=== PATIENT | male | born 1990 | race Caucasian/White ===

== ENCOUNTER 2018-10-29 07:50 | Emergency (ER) | payer MEDICARE, MEDICAID, SELFPAY ==
[2018-10-29] VITALS (17 sets, daily range): BP systolic 123–144; BP diastolic 67–92; PULSE 57–71; RESP 12–17; TEMP 36.4–37.3; O2SAT 95–100
--- NOTE | 2018-10-29 08:10 | ED.GENADUL_ITS ---
Discharge Plan Disposition Patient Disposition: HOME Condition: Stable Discharge Details Chief Complaint: GenMedical Clinical Impression: Vertigo, Nausea, Abnormal TSH Primary Care Provider: Mandi Kim ED Provider: Nallely Kuhn Home Meds and New Rx's Prescriptions: New ondansetron HCl [Zofran] 4 mg tablet 4 mg PO TID PRN (Reason: nausea) Qty: 9 RF: 0 Continue methylphenidate HCl [Ritalin] 20 mg tablet 20 mg PO TID MDD 3 Qty: 90 RF: 0 methylphenidate HCl [Ritalin] 10 mg tablet 10 mg PO BID MDD 2 Qty: 60 RF: 0 levothyroxine 200 MCG tablet 200 mcg PO DAILY RF: 0 cholecalciferol (vitamin D3) 50,000 UNIT capsule 50,000 unit PO wkly RF: 0 buprenorphine-naloxone [Suboxone] 2-0.5 mg Film 10 mg SUBLINGUAL DAILY RF: 0 Discharge Instructions Instructions: Ondansetron (By mouth), Acute Nausea and Vomiting (ED), Dizziness (ED) Additional Instructions: Please return immediately to the emergency department if you develop any new or worsening symptoms or if you become otherwise concerned. It is extremely important that you make an appointment to be seen by your primary care doctor within the next 1-2 weeks in follow-up for this visit. Referrals: Mandi Kim, ENFORCEMENT OFFICER [Primary Care Provider] - Medical Decision Making Charanjit Mayorga is a 28-year-old man with a history of thyroid cancer status post resection now in remission, ADHD, on Suboxone presenting to the emergency department with 1 week of sense of motion with nausea in the setting of daily marijuana use. Benign exam, patient very well and nontoxic appearing, no neuro deficit, no cardiopulmonary abnormality. Concern for atypical cyclic vomiting syndrome versus peripheral vertigo versus central vertigo. Exam/history not consistent with ACS, arrhythmia, PE, acute aortic pathology, meningitis, infection, acute stroke. Plan for EKG, screening labs, IV fluid hydration. Patient with no improvement after IV hydration. Labs nondiagnostic. Plan for meclizine, MRA/MRI for rule out central vertigo. Patient with continued symptoms, remains in normal sinus rhythm on monitor. No improvement with meclizine, patient continues to feel overall well but with sense of motion persisting. Exam unchanged. MRI/MRA negative per radiology. Labs show low TSH. 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 Discussed marijuana cessation in case symptoms are caused by cyclic vomiting syndrome. Lengthy discussion with patient regarding return to emergency department precautions and importance of outpatient follow-up with endocrine regarding his TSH level, and also with his PCP as scheduled for 10/31/18. Plan for Rx Zofran. Patient is amenable to the plan. Walked out of ED without issue. Medical Records Medical records reviewed: Yes I reviewed the patient's medical records. Lab Data Lab results reviewed: Yes I reviewed the patient's lab results. Laboratory Tests Range/Units 10/29/18 10/29/18 09:30 09:30 WBC (4.4-10.8) k/cumm 7.00 RBC (4.50-6.00) m/cumm 5.10 Hgb (13.5-17.5) g/dL 15.5 Hct (40.0-50.0) % 44.3 MCV (80-95) fL 86.9 MCH (27.0-33.0) pg 30.4 MCHC (32.0-36.0) g/dL 35.0 RDW (11.8-14.1) % 12.5 Plt Count (130-400) x1000/uL 213 MPV (8.0-11.0) fL 9.2 Immature Gran % 0.1 Neutrophils % 75.5 Lymphocytes % 15.4 Monocytes % 6.3 Eosinophils % 2.4 Basophils % 0.3 Absolute Neutrophils (1.2-6.7) k/cumm 5.28 Absolute Lymphocytes (1.2-3.4) k/cumm 1.08 L Absolute Monocytes (0.11-0.7) k/cumm 0.44 Absolute Eosinophils (0.0-0.7) k/cumm 0.17 Absolute Basophils (0.0-0.2) k/cumm 0.02 Sodium (136-145) mmol/L 140 Potassium (3.5-5.1) mmol/L 4.3 Chloride (98-107) mmol/L 102 Carbon Dioxide (21.0-32.0) mmol/L 30.9 Anion Gap (3-11) mmol/L 7.1 BUN (7-18) mg/dL 14 Creatinine (0.70-1.30) mg/dL 1.02 Estimated GFR/1.73 m2 (mL/min/1.73m2) >= 60.00 Glucose (70-100) mg/dL 101 H Calcium (8.5-10.1) mg/dL 8.0 L Total Bilirubin (0.2-1.0) mg/dL 0.4 AST (15-37) U/L 17 ALT (12-78) U/L 21 Alkaline Phosphatase (46-116) U/L 56 Total Protein (6.4-8.2) g/dL 7.4 Albumin (3.4-5.0) g/dL 4.2 TSH (0.358-3.74) uIU/mL 0.29 L Free T4 (0.76-1.46) ng/dL 1.26 ECG Data Attestation: I personally reviewed and interpreted this ECG (s) as follows: Interpretation: EKG shows sinus bradycardia at 57 with normal axis, no acute ischemic changes, no WPW, no Brugada, no long QT, no HOCM HPI General Mode of arrival: ambulatory . Date/Time Provider Initiated Documentation: 10/29/18 08:09 . Limitations to Documentation: no limitations . Information obtained by: patient, RN notes reviewed and old records reviewed . HPI Narrative: Charanjit Mayorga is a 28 y/o man with history of thyroid cancer in 2011 status post resection, hypertension, ADHD, GERD, on Suboxone presenting to the emergency department complaining of motion sickness. Patient reports that over the past week he has been experiencing a sense of motion with nausea without vomiting as if he is seasick or carsick. Patient reports that he has some sense of motion with his nausea, but denies vertigo, denies falls. Patient reports that since onset of symptoms he has felt more tired than usual. Has felt intermittently with a sense of motion that he is off balance and has needed to sit down. He has not felt at any point that he was going to faint or had a sensation of lightheadedness or palpitations. he denies having any pain, currently or over the past week. He reports that he has not actually vomited. He denies numbness, tingling, weakness of any extremities, fever, shortness of breath, cough, diarrhea, rash, vision changes. Patient reports that he smokes approximately 1 g of marijuana daily. This is been ongoing for the past month. Patient reports that one month ago he got out of correction, from being incarcerated for 5 months total. Patient reports that prior to present he had been smoking the same amount of marijuana daily for several years. Patient reports that in the past week his nausea has caused him to cut down on cigarette smoking, was previously half pack per day smoker now has had a few cigarettes here there and none in the past 2 days. Patient reports that his appetite has been somewhat decreased secondary to nausea, although he has basically been eating and drinking as usual. Patient reports that symptoms improved somewhat while he is taking a shower. No recent illnesses, trauma, or injury. Related Data Home Medications Medication Instructions Recorded Confirmed levothyroxine 200 mcg PO DAILY tab-cap 04/19/17 10/29/18 cholecalciferol (vitamin D3) 50,000 unit PO wkly tab-cap 03/14/18 10/29/18 methylphenidate 10 mg tablet 10 mg PO BID #60 tab-cap MDD 2 10/05/18 10/29/18 methylphenidate 20 mg tablet 20 mg PO TID #90 tab-cap MDD 3 10/05/18 10/29/18 buprenorphine-naloxone [Suboxone] 10 mg SUBLINGUAL DAILY 10/29/18 10/29/18 ondansetron HCl [Zofran] 4 mg PO TID PRN #9 tab 10/29/18 Previous Rx's Medication Instructions Recorded methylphenidate 10 mg tablet 10 mg PO BID #60 tab-cap MDD 2 10/05/18 methylphenidate 20 mg tablet 20 mg PO TID #90 tab-cap MDD 3 10/05/18 ondansetron HCl [Zofran] 4 mg PO TID PRN #9 tab 10/29/18 Allergies Allergy/AdvReac Type Severity Reaction Status Date / Time oxycodone Allergy Itching Unverified 10/29/18 07:59 General Stated Complaint: GenMedical REGGIE: 4 Review of Systems Review of Systems Constitutional: denies fevers Eyes: denies eye pain, visual changes ENT: denies facial pain, dental pain, sore throat, ear pain, tinnitus Cardiovascular: denies chest pain, edema Respiratory: denies SOB, cough GI: denies abdominal pain, vomiting, diarrhea, reports nausea : denies flank pain MSK: denies back pain, neck pain, arthralgias, myalgias Skin: denies rash Neuro: denies headaches, lightheadedness, weakness, reports sense of motion worse with standing PFSH Family History Mother No problems noted. Father Essential hypertension Hyperlipidemia Thyroid Wrist (~11/2013) Family History Mother No problems noted. Father Essential hypertension Hyperlipidemia Social History frequency: 5-6 times per week duration: > 90 minutes/day Smoking/Tobacco Use Status: Current every day alcohol intake: current alcohol intake frequency: a few times a month substance use type: marijuana special raman needs: No Surgical History Thyroid Wrist (~11/2013) Social History frequency: 5-6 times per week duration: > 90 minutes/day Smoking/Tobacco Use Status: Current every day alcohol intake: current alcohol intake frequency: a few times a month substance use type: marijuana special raman needs: No Exam Narrative Exam Narrative: Constitutional: well and [id number], pleasant, conversing normally HENT: head atraumatic, normocephalic normal inspection, mucous membranes moist, normal canals and TMs b/l Eyes: conjunctiva normal, sclera normal, pupils 3mm b/l Neck: no stridor, normal ROM, trachea midline, supple, no meningismus Chest: normal inspection Resp: normal work of breathing, LCTAB Cardio: normal rate, normal rhythm, no murmur appreciated Back: normal inspection, no rash Skin: warm, dry, normal color, no rash Neuro: alert, not altered, cranial nerves II through XII intact, motor 5 out of 5 throughout, normal gait, normal finger to nose and heel to wharton, normal tone Ext: no edema Psych: normal mood, normal affect, normal behavior Course Vital Signs Temperature 36.4 C L 10/29/18 07:57 Pulse 71 10/29/18 07:57 Respiratory Rate 16 10/29/18 07:57 Blood Pressure 144/92 H 10/29/18 07:57 Pulse Oximetry 97 10/29/18 07:57 Temperature 36.4 C L 10/29/18 07:57 Temperature Source Temporal Artery Scan 10/29/18 07:57 Pulse 71 10/29/18 07:57 Respiratory Rate 16 10/29/18 07:57 Respiratory Effort 10/29/18 08:01 Blood Pressure 144/92 H 10/29/18 07:57 Blood Pressure Position Sitting 10/29/18 07:57 Pulse Oximetry 97 10/29/18 07:57 Oxygen Delivery Method Room Air 10/29/18 07:57 Oxygen Flow Rate 0 10/29/18 07:57 Pain Level 0 10/29/18 07:57
[2018-10-29] MEDS: Normal Saline 1,000 ML 1000 ML IV (09:33)
[2018-10-29 09:36] LABS: Abs Immature Grans 0.01 k/cumm (0.0-0.09); Absolute Basophil Count 0.02 k/cumm (0.0-0.2); Absolute Eosinophil Count 0.17 k/cumm (0.0-0.7); Absolute Lymphocyte Count 1.08 k/cumm (1.2-3.4); Absolute Monocyte Count 0.44 k/cumm (0.11-0.7); Absolute Neutrophil Count 5.28 k/cumm (1.2-6.7); Basophils % 0.3; Eosinophils % 2.4; HCT 44.3 % (40.0-50.0); HGB 15.5 g/dL (13.5-17.5); Immature Grans % 0.1; Lymphocytes % 15.4; Mean Corpuscular Hemoglobin 30.4 pg (27.0-33.0); Mean Corpuscular Volume 86.9 fL (80-95); Mean Platelet Volume 9.2 fL (8.0-11.0); Monocytes % 6.3; Neutrophils % 75.5; Platelet Count 213 x1000/uL (130-400); RBC Distribution Width 12.5 % (11.8-14.1)
[2018-10-29 10:08] LABS: ALT 21 U/L (12-78); AST 17 U/L (15-37); Albumin 4.2 g/dL (3.4-5.0); Alkaline Phosphatase 56 U/L (46-116); Anion Gap 7.1 mmol/L (3-11); BUN 14 mg/dL (7-18); Bilirubin, Total 0.4 mg/dL (0.2-1.0); CO2 30.9 mmol/L (21.0-32.0); CREATININE 1.02 mg/dL (0.70-1.30); Chloride 102 mmol/L (98-107); Glucose 101 mg/dL (70-100); Potassium 4.3 mmol/L (3.5-5.1); Sodium 140 mmol/L (136-145); TSH (W/Ref FT4) 0.29 uIU/mL (0.358-3.74); Total Protein 7.4 g/dL (6.4-8.2)
[2018-10-29 10:28] LABS: FREE T4 1.26 ng/dL (0.76-1.46)
[2018-10-29] MEDS: Meclizine 25 MG TAB PO (10:46)
--- NOTE | 2018-10-29 12:20 | DI.MRI_ITS ---
SYMPTOM/DIAGNOSIS: VERTIGO, H/O THYROID CA BRAIN MRI: Pre and post contrast MRI of the brain was performed. No priors. MRI examination of the brain was performed according to the usual protocol with additional postcontrast axial and coronal T 1 weighted imaging. No mass lesion or enhancing lesion is seen in the brain. Ventricular system is normal in appearance. No signal abnormality is identified. Diffusion weighted imaging is within normal limits. Orbital and temporal bone structures appear intact. There is normal flow void in the [place] vasculature. CONCLUSION: Negative brain MRI. The findings were discussed with the ER on the date of the examination. MRA BRAIN: Routine noncontrast examination was performed. The distal internal carotid arteries are unremarkable. No evidence of occlusion, aneurysm or significant stenosis. The anterior cerebral arteries are unremarkable without evidence of occlusion, aneurysm or significant stenosis. The middle cerebral arteries are unremarkable without evidence of occlusion, aneurysm or significant stenosis. The posterior cerebral arteries are unremarkable without evidence of occlusion, aneurysm or significant stenosis. Note is made of a right posterior communicating artery which is a normal variant. The distal vertebral arteries and basilar artery are unremarkable without evidence of occlusion, aneurysm or significant stenosis. IMPRESSION: Unremarkable MRA of the [place]. The findings were discussed with the ER on the date of the examination.
[2018-10-29] MEDS: Gadoterate meglumine 20 ML VIAL 19 ML IVP (12:47)
[2018-10-29] MEDS: Ondansetron O.D.T. 4 MG TABEF PO (14:46)
== END 2018-10-29 14:47 | disposition home or self-care (01) ==
PROVIDERS: Emergency Provider Student in an Organized Health Care Education/Training Program; PCP Nurse Practitioner
DX: R42 Dizziness and giddiness (principal); R11.0 Nausea; R94.6 Abnormal results of thyroid function studies; Z85.850 Personal history of malignant neoplasm of thyroid; F12.10 Cannabis abuse, uncomplicated; I10 Essential (primary) hypertension
CPT/HCPCS: 36415; 70544; 70553; 80053; 93005; 96360; 99285; 84439; 84443; 85025; 93010; 99284

== ENCOUNTER 2019-04-17 16:04 | Emergency (ER) | payer MEDICARE, MEDICAID, SELFPAY ==
[2019-04-17 16:07] VITALS: BP 150/90; PULSE 72; RESP 20; TEMP 36.8; O2SAT 98
--- NOTE | 2019-04-17 16:18 | W.ED.GENAD ---
Discharge Plan Disposition Patient Disposition: HOME Condition: Stable Discharge Details Chief Complaint: Orthopedic Clinical Impression: Left wrist sprain Primary Care Provider: Mandi Kim ED Provider: Isak Smiley Home Meds and New Rx's Prescriptions: No Action sildenafil [Viagra] 100 mg tablet 100 mg PO ONCE Qty: 10 RF: 0 methylphenidate HCl [Ritalin] 10 mg tablet 10 mg PO BID MDD 2 Qty: 60 RF: 0 methylphenidate HCl [Ritalin] 20 mg tablet 20 mg PO TID MDD 3 Qty: 90 RF: 0 cholecalciferol (vitamin D3) 50,000 UNIT capsule 50,000 unit PO wkly RF: 0 levothyroxine 200 mcg tablet 200 mcg PO DAILY RF: 0 buprenorphine-naloxone [Suboxone] 2-0.5 mg Film 10 mg SUBLINGUAL DAILY RF: 0 Discharge Instructions Instructions: Wrist Sprain (ED) Additional Instructions: if still in pain in a week see your primary care provider, wear the splint until you are pain free Medical Decision Making 28 yo male comes in with chief complaint of left wrist pain. He states on Monday he was playing baseball and slid into a base and hit his left wrist. Has full rom on exam though with pain in the psoterior mid wrist. Normal sensation, 2+radial and ulnar pulses. Normal cap refill. No snuffbox tenderness. suspect contusion but will xray to eval for possible fx. Has chronic pain in the right wrist that is unchanged, states he had a fx a few years ago and denies trauma to the right wrist. Has no signs of trauma or tenderness on eaxm so doubt fx and do not feel imaging of right wrist indicated no acute findings on my read. Placed in splint and advised if still in pain in a week to see pcp for a reevaluation Differential Diagnosis sprain, contusion, fx Imaging Data Radiologic Study: Attestation: I personally reviewed and interpreted this imaging study as follows: Imaging: X-Ray My impression: no acute findings HPI General Mode of arrival: ambulatory. Date/Time Provider Initiated Documentation: 04/17/19 16:13. Limitations to Documentation: no limitations. Information obtained by: patient. History of Present Illness 28 year old M presents to the emergency department with the chief complaint of left wrist pain, described as moderate, Quality is described as aching, and is localized to the left and upper extremity. Patient reports no radiation. Patient started experiencing this day(s) (2) and it has been constant. No relieving factors improve symptom(s), No exacerbating factors reported . Patient did receive the following treatments prior to arrival, none Related Data Home Medications Medication Instructions Recorded Confirmed cholecalciferol (vitamin D3) 50,000 unit PO wkly tab-cap 03/14/18 04/17/19 buprenorphine-naloxone [Suboxone] 10 mg SUBLINGUAL DAILY 10/29/18 04/17/19 sildenafil 100 mg tablet 100 mg PO ONCE #10 tab 11/05/18 04/17/19 levothyroxine 200 mcg tablet 200 mcg PO DAILY tab-cap 03/07/19 04/17/19 methylphenidate 10 mg tablet 10 mg PO BID #60 tab-cap MDD 2 04/10/19 04/17/19 methylphenidate 20 mg tablet 20 mg PO TID #90 tab-cap MDD 3 04/10/19 04/17/19 Previous Rx's Medication Instructions Recorded sildenafil 100 mg tablet 100 mg PO ONCE #10 tab 11/05/18 methylphenidate 10 mg tablet 10 mg PO BID #60 tab-cap MDD 2 04/10/19 methylphenidate 20 mg tablet 20 mg PO TID #90 tab-cap MDD 3 04/10/19 Allergies Allergy/AdvReac Type Severity Reaction Status Date / Time oxycodone Allergy Itching Verified 03/20/19 15:46 General Stated Complaint: Orthopedic REGGIE: 3 Review of Systems Review of Systems All systems reviewed & are unremarkable except as noted in HPI and below Constitutional Denies chills, Denies fever(s) and Denies weakness Cardiovascular Denies chest pain and Denies dyspnea Respiratory Denies cough and Denies dyspnea Gastrointestinal Denies abdominal pain, Denies nausea and Denies vomiting Musculoskeletal Denies joint swelling Integumentary/Breasts Denies rash Neurologic Denies weakness Endocrine Denies cold intolerance and Denies heat intolerance [facility] Surgical History Thyroid Wrist (~11/2013) Family History Mother No problems noted. Father Essential hypertension Hyperlipidemia Social History Smoking/Tobacco Use Status: Current every day Alcohol Intake: current Alcohol Intake frequency: a few times a month Drug use: Daily Substance use type: marijuana Duration: > 90 minutes/day Frequency: 5-6 times per week Special raman needs: No Do you feel safe in your relationship?: Yes Exam Const General: no acute distress Orientation: alert HENMT Head: normal to inspection Ears: external ears normal General nose exam: external nose normal Mouth: moist mucous membranes Eyes General: appearance normal, both eyes and all related structures Neck Neck: normal visual inspection Resp Effort & Inspection: normal respiratory effort and able to speak in complete sentences Cardio Rate: regular rate Skin General skin exam: no rashes or lesions noted Neuro General: alert and oriented x3 Extrem General: full ROM and normal capillary refill Psych Mental Status: mental status grossly normal Course Vital Signs Temperature 36.8 C 04/17/19 16:07 Pulse 72 04/17/19 16:07 Respiratory Rate 20 04/17/19 16:07 Blood Pressure 150/90 H 04/17/19 16:07 Pulse Oximetry 98 04/17/19 16:07 Temperature 36.8 C 04/17/19 16:07 Temperature Source Tympanic 04/17/19 16:07 Pulse 72 04/17/19 16:07 Respiratory Rate 20 04/17/19 16:07 Respiratory Effort Non-Labored 04/17/19 16:07 Blood Pressure 150/90 H 04/17/19 16:07 Pulse Oximetry 98 04/17/19 16:07 Pain Level 8 04/17/19 16:07
--- NOTE | 2019-04-17 16:21 | ED.GENADUL_ITS ---
Discharge Plan Disposition Patient Disposition: HOME Condition: Stable Discharge Details Chief Complaint: Orthopedic Clinical Impression: Left wrist sprain Primary Care Provider: Mandi Kim ED Provider: Isak Smiley Home Meds and New Rx's Prescriptions: No Action sildenafil [Viagra] 100 mg tablet 100 mg PO ONCE Qty: 10 RF: 0 methylphenidate HCl [Ritalin] 10 mg tablet 10 mg PO BID MDD 2 Qty: 60 RF: 0 methylphenidate HCl [Ritalin] 20 mg tablet 20 mg PO TID MDD 3 Qty: 90 RF: 0 cholecalciferol (vitamin D3) 50,000 UNIT capsule 50,000 unit PO wkly RF: 0 levothyroxine 200 mcg tablet 200 mcg PO DAILY RF: 0 buprenorphine-naloxone [Suboxone] 2-0.5 mg Film 10 mg SUBLINGUAL DAILY RF: 0 Discharge Instructions Instructions: Wrist Sprain (ED) Additional Instructions: if still in pain in a week see your primary care provider, wear the splint until you are pain free Medical Decision Making 28 yo male comes in with chief complaint of left wrist pain. He states on Monday he was playing baseball and slid into a base and hit his left wrist. Has full rom on exam though with pain in the psoterior mid wrist. Normal sensation, 2+radial and ulnar pulses. Normal cap refill. No snuffbox tenderness. suspect contusion but will xray to eval for possible fx. Has chronic pain in the right wrist that is unchanged, states he had a fx a few years ago and denies trauma to the right wrist. Has no signs of trauma or tenderness on eaxm so doubt fx and do not feel imaging of right wrist indicated no acute findings on my read. Placed in splint and advised if still in pain in a week to see pcp for a reevaluation Differential Diagnosis sprain, contusion, fx Imaging Data Radiologic Study: Attestation: I personally reviewed and interpreted this imaging study as follows: Imaging: X-Ray My impression: no acute findings HPI General Mode of arrival: ambulatory . Date/Time Provider Initiated Documentation: 04/17/19 16:13 . Limitations to Documentation: no limitations . Information obtained by: patient . History of Present Illness 28 year old M presents to the emergency department with the chief complaint of left wrist pain, described as moderate, Quality is described as aching, and is localized to the left and upper extremity. Patient reports no radiation. Patient started experiencing this day(s) (2) and it has been constant. No relieving factors improve symptom(s), No exacerbating factors reported . Patient did receive the following treatments prior to arrival, none Related Data Home Medications Medication Instructions Recorded Confirmed cholecalciferol (vitamin D3) 50,000 unit PO wkly tab-cap 03/14/18 04/17/19 buprenorphine-naloxone [Suboxone] 10 mg SUBLINGUAL DAILY 10/29/18 04/17/19 sildenafil 100 mg tablet 100 mg PO ONCE #10 tab 11/05/18 04/17/19 levothyroxine 200 mcg tablet 200 mcg PO DAILY tab-cap 03/07/19 04/17/19 methylphenidate 10 mg tablet 10 mg PO BID #60 tab-cap MDD 2 04/10/19 04/17/19 methylphenidate 20 mg tablet 20 mg PO TID #90 tab-cap MDD 3 04/10/19 04/17/19 Previous Rx's Medication Instructions Recorded sildenafil 100 mg tablet 100 mg PO ONCE #10 tab 11/05/18 methylphenidate 10 mg tablet 10 mg PO BID #60 tab-cap MDD 2 04/10/19 methylphenidate 20 mg tablet 20 mg PO TID #90 tab-cap MDD 3 04/10/19 Allergies Allergy/AdvReac Type Severity Reaction Status Date / Time oxycodone Allergy Itching Verified 03/20/19 15:46 General Stated Complaint: Orthopedic REGGIE: 3 Review of Systems Review of Systems All systems reviewed & are unremarkable except as noted in HPI and below Constitutional Denies chills, Denies fever(s) and Denies weakness Cardiovascular Denies chest pain and Denies dyspnea Respiratory Denies cough and Denies dyspnea Gastrointestinal Denies abdominal pain, Denies nausea and Denies vomiting Musculoskeletal Denies joint swelling Integumentary/Breasts Denies rash Neurologic Denies weakness Endocrine Denies cold intolerance and Denies heat intolerance [facility] Surgical History Thyroid Wrist (~11/2013) Family History Mother No problems noted. Father Essential hypertension Hyperlipidemia Social History Smoking/Tobacco Use Status: Current every day Alcohol Intake: current Alcohol Intake frequency: a few times a month Drug use: Daily Substance use type: marijuana Duration: > 90 minutes/day Frequency: 5-6 times per week Special raman needs: No Do you feel safe in your relationship?: Yes Exam Const General: no acute distress Orientation: alert HENMT Head: normal to inspection Ears: external ears normal General nose exam: external nose normal Mouth: moist mucous membranes Eyes General: appearance normal, both eyes and all related structures Neck Neck: normal visual inspection Resp Effort & Inspection: normal respiratory effort and able to speak in complete sentences Cardio Rate: regular rate Skin General skin exam: no rashes or lesions noted Neuro General: alert and oriented x3 Extrem General: full ROM and normal capillary refill Psych Mental Status: mental status grossly normal Course Vital Signs Temperature 36.8 C 04/17/19 16:07 Pulse 72 04/17/19 16:07 Respiratory Rate 20 04/17/19 16:07 Blood Pressure 150/90 H 04/17/19 16:07 Pulse Oximetry 98 04/17/19 16:07 Temperature 36.8 C 04/17/19 16:07 Temperature Source Tympanic 04/17/19 16:07 Pulse 72 04/17/19 16:07 Respiratory Rate 20 04/17/19 16:07 Respiratory Effort Non-Labored 04/17/19 16:07 Blood Pressure 150/90 H 04/17/19 16:07 Pulse Oximetry 98 04/17/19 16:07 Pain Level 8 04/17/19 16:07
[2019-04-17] MEDS: Ibuprofen 600 MG TAB PO (16:30)
--- NOTE | 2019-04-17 16:36 | DI.RAD_ITS ---
SYMPTOM/DIAGNOSIS: PAIN, S/P FALL LEFT WRIST: A small bony density adjacent to the dorsal carpal bones on the lateral projection could represent a triquetral chip fracture of indeterminate age. Correlation with the patient's clinical status is suggested. Note is also made of mild soft tissue swelling over the dorsum of the wrist. SUMMARY: A triquetral chip fracture is noted and is of indeterminate age. These findings to be correlated with the patient's clinical status.
[2019-04-17 16:59] VITALS: BP 150/90; PULSE 72; RESP 20; TEMP 36.8; O2SAT 98
--- NOTE | 2019-04-17 17:03 | DI.VRAD_ITS ---
EXAM: XR Left Wrist EXAM DATE/TIME: 04/17/2019 4:18 PM CLINICAL HISTORY: 28 years old, male; Pain; Wrist; Left TECHNIQUE: Imaging protocol: XR Left wrist. Views: 3 or more views. COMPARISON: No relevant prior studies available. FINDINGS: Bones/joints: There is a small bony density dorsal to the carpal bones on the lateral view that may be the result of a triquetral chip fracture. Exact age is uncertain. Please correlate with clinical exam. Soft tissues: There is mild soft tissue swelling present dorsally. IMPRESSION: Evidence of a triquetral fracture of uncertain age. Please correlate with the clinical exam and history. Dictated and Authenticated by: Paco Ramires MD. Ordering:SUSANNE Parisi MD
--- NOTE | 2019-04-17 17:11 | W.ED.FU ---
xray per vrad ?triquetrum fx. I spoke with the pt and gave him the number for orthopedics for f/u and he will call tomorrow for an appointment
== END 2019-04-17 16:59 | disposition home or self-care (01) ==
PROVIDERS: Emergency Provider Emergency Medicine; PCP Nurse Practitioner
DX: S63.522A Sprain of radiocarpal joint of left wrist, initial encounter (principal); W22.8XXA Striking against or struck by other objects, initial encounter; Y93.64 Activity, baseball; I10 Essential (primary) hypertension
CPT/HCPCS: 99283; 73110; 99282; L3807

== ENCOUNTER 2019-06-05 14:45 | Emergency (ER) | payer MEDICARE, MEDICAID, SELFPAY ==
[2019-06-05 14:57] VITALS: BP 134/81; PULSE 79; RESP 12; TEMP 36.1; O2SAT 94
--- NOTE | 2019-06-05 15:11 | W.ED.GENAD ---
Discharge Plan Disposition Patient Disposition: HOME Condition: Stable Discharge Details Chief Complaint: DentalOral Clinical Impression: Tongue pain Primary Care Provider: Mandi Kim ED Provider: Isak Smiley Home Meds and New Rx's Prescriptions: New clindamycin HCl 150 mg capsule 450 mg PO TID 7 Days Qty: 63 RF: 0 Continued sildenafil [Viagra] 100 mg tablet 100 mg PO ONCE Qty: 10 RF: 3 methylphenidate HCl [Ritalin] 10 mg tablet 10 mg PO BID MDD 2 Qty: 60 RF: 0 methylphenidate HCl [Ritalin] 20 mg tablet 20 mg PO TID MDD 3 Qty: 90 RF: 0 cholecalciferol (vitamin D3) 50,000 UNIT capsule 50,000 unit PO wkly RF: 0 levothyroxine 200 mcg tablet 200 mcg PO DAILY RF: 0 buprenorphine-naloxone [Suboxone] 2-0.5 mg Film 6 mg SUBLINGUAL DAILY RF: 0 Discharge Instructions Additional Instructions: follow up with your primary care provider next week if symptoms continue you can take 1000mg tylenol and 600mg ibuprofen every 6 hours for pain as needed if you have severe worsening pain, fevers, feel more ill, have worsening difficulty breathing return to the emergency department Medical Decision Making 28 yo male comes in with discomfort under his tongue since yesterday. no fevers or trauma. 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 Under his tongue is a small 1cm diameter circular area of erythema that is not swollen. Could be mild irritation from suboxone vs infection, will cover with abx and advised f/u with pcp and if worsening return to the emergency department for reevaluation Differential Diagnosis abrasion, infection HPI General Mode of arrival: ambulatory. Date/Time Provider Initiated Documentation: 06/05/19 14:46. Limitations to Documentation: no limitations. Information obtained by: patient. History of Present Illness 28 year old M presents to the emergency department with the chief complaint of sore under tongue, described as moderate, Quality is described as aching, and is localized to the mouth. Patient reports no radiation. Patient started experiencing this day(s) (1) and it has been constant. No relieving factors improve symptom(s), No exacerbating factors reported . Patient notes no other symptoms.. Patient did receive the following treatments prior to arrival, none Related Data Home Medications Medication Instructions Recorded Confirmed cholecalciferol (vitamin D3) 50,000 unit PO wkly tab-cap 03/14/18 06/05/19 buprenorphine-naloxone [Suboxone] 6 mg SUBLINGUAL DAILY 10/29/18 06/05/19 levothyroxine 200 mcg tablet 200 mcg PO DAILY tab-cap 03/07/19 06/05/19 methylphenidate 10 mg tablet 10 mg PO BID #60 tab-cap MDD 2 05/20/19 06/05/19 methylphenidate 20 mg tablet 20 mg PO TID #90 tab-cap MDD 3 05/20/19 06/05/19 sildenafil 100 mg tablet 100 mg PO ONCE #10 tab 05/20/19 06/05/19 clindamycin HCl 450 mg PO TID 7 Days #63 cap 06/05/19 Previous Rx's Medication Instructions Recorded methylphenidate 10 mg tablet 10 mg PO BID #60 tab-cap MDD 2 05/20/19 methylphenidate 20 mg tablet 20 mg PO TID #90 tab-cap MDD 3 05/20/19 sildenafil 100 mg tablet 100 mg PO ONCE #10 tab 05/20/19 clindamycin HCl 450 mg PO TID 7 Days #63 cap 06/05/19 Allergies Allergy/AdvReac Type Severity Reaction Status Date / Time oxycodone Allergy Itching Verified 03/20/19 15:46 General Stated Complaint: DentalOral REGGIE: 4 Review of Systems Review of Systems All systems reviewed & are unremarkable except as noted in HPI and below Constitutional Denies chills, Denies fever(s) and Denies weakness Cardiovascular Denies chest pain and Denies dyspnea Respiratory Denies cough and Denies dyspnea Gastrointestinal Denies abdominal pain, Denies nausea and Denies vomiting Integumentary/Breasts Denies rash Neurologic Denies weakness PFSH Surgical History Thyroid Wrist (~11/2013) Family History Mother No problems noted. Father Essential hypertension Hyperlipidemia Social History Smoking/Tobacco Use Status: Current every day Tobacco Type: cigarettes Alcohol Intake: current Alcohol Intake frequency: a few times a month Drug use: Daily Substance use type: marijuana Duration: > 90 minutes/day Frequency: 5-6 times per week Special raman needs: No Do you feel safe at home: Yes Do you feel safe in your relationship?: Yes Exam Const General: no acute distress Orientation: alert HENMT Head: normal to inspection Ears: external ears normal General nose exam: external nose normal Mouth: moist mucous membranes Eyes General: appearance normal, both eyes and all related structures Neck Neck: normal visual inspection Resp Effort & Inspection: normal respiratory effort and able to speak in complete sentences Cardio Rate: regular rate Skin General skin exam: no rashes or lesions noted Neuro General: alert and oriented x3 Extrem General: normal to inspection Psych Mental Status: mental status grossly normal Course Vital Signs Temperature 36.1 C L 06/05/19 14:57 Pulse 79 06/05/19 14:57 Respiratory Rate 12 06/05/19 14:57 Blood Pressure 134/81 06/05/19 14:57 Pulse Oximetry 94 L 06/05/19 14:57 Temperature 36.1 C L 06/05/19 14:57 Temperature Source Temporal Artery Scan 06/05/19 14:57 Pulse 79 06/05/19 14:57 Respiratory Rate 12 06/05/19 14:57 Respiratory Effort Non-Labored 06/05/19 14:59 Blood Pressure 134/81 06/05/19 14:57 Blood Pressure Position Sitting 06/05/19 14:57 Pulse Oximetry 94 L 06/05/19 14:57 Oxygen Delivery Method Room Air 06/05/19 14:57 Oxygen Flow Rate 0 06/05/19 14:57 Pain Level 6 06/05/19 14:57
== END 2019-06-05 15:23 | disposition home or self-care (01) ==
PROVIDERS: Emergency Provider Emergency Medicine; PCP Nurse Practitioner
DX: K14.6 Glossodynia (principal)
CPT/HCPCS: 99283

== ENCOUNTER 2020-05-26 11:23 | Outpatient (CLI) | payer MEDICARE, MEDICAID, SELFPAY ==
[2020-05-27 01:50] LABS: COVID-19 RT-PCR UVMMC Result Negative (Negative)
== END 2020-05-26 11:43 ==
PROVIDERS: PCP Nurse Practitioner; Visit Provider Nurse Practitioner
DX: J02.9 Acute pharyngitis, unspecified (principal)
CPT/HCPCS: 87880; 99282; U0003; 87081

== ENCOUNTER 2020-05-26 14:19 | Emergency (ER) | payer MEDICARE, MEDICAID, SELFPAY ==
[2020-05-26 14:23] VITALS: BP 158/104; PULSE 98; TEMP 36.5; O2SAT 97
--- NOTE | 2020-05-26 14:45 | ED.GENADUL_ITS ---
Discharge Plan Disposition Patient Disposition: HOME Condition: Stable Discharge Details Chief Complaint: Sorethroat Clinical Impression: Pharyngitis Primary Care Provider: Mandi Kim ED Provider: Blu Ewing Home Meds and New Rx's Prescriptions: Continued cholecalciferol (vitamin D3) 50,000 UNIT capsule 50,000 unit PO wkly RF: 0 levothyroxine 200 mcg tablet 200 mcg PO DAILY RF: 0 methylphenidate HCl [Ritalin] 10 mg tablet 10 mg PO DAILY MDD 2 RF: 0 methylphenidate HCl [Ritalin] 20 mg tablet 20 mg PO BID MDD 3 RF: 0 Discharge Instructions Instructions: Pharyngitis (ED) Additional Instructions: Rapid strep negative, culture pending. Salt water gargling as tolerated. [id number] medications as directed for symptomatic control. Please watch for new or worsening symptoms and return to the ER for any concerns. I do recommend reaching out your primary care provider tomorrow for prompt outpatient reevaluation Medical Decision Making 29-year-old gentleman with mild sore throat for 1 week, has not tried any [id number] medications, concerned of strep throat. Pharynx is minimally erythematous but there is no obvious swelling, exudates, peritonsillar abscess, etc. Airway is patent. Clinically this appears to be more viral in nature but will obtain POC rapid strep Rapid strep negative, culture pending. Patient made aware of results. He has no additional questions or concerns and is comfortable discharge Medical Records Medical records reviewed: Yes I reviewed the patient's medical records. Lab Data Labs: POC rapid strep negative HPI General Mode of arrival: ambulatory . Date/Time Provider Initiated Documentation: 05/26/20 14:29 . Limitations to Documentation: no limitations . Information obtained by: patient . HPI Narrative: 29-year-old gentleman with a mild sore throat for 1 week presents with concern of strep throat. He reports that he has had strep throat in the past and this feels somewhat similar. He denies recent travel or sick contacts. He denies fever, ear pain, cough, shortness of breath. He is otherwise asymptomatic. He does smoke cigarettes daily. He has not tried any of the counter medications for his symptoms Related Data Home Medications Medication Instructions Recorded Confirmed cholecalciferol (vitamin D3) 50,000 unit PO wkly tab-cap 03/14/18 05/26/20 levothyroxine 200 mcg tablet 200 mcg PO DAILY tab-cap 03/07/19 05/26/20 methylphenidate HCl [Ritalin] 10 mg PO DAILY MDD 2 05/26/20 05/26/20 methylphenidate HCl [Ritalin] 20 mg PO BID MDD 3 05/26/20 05/26/20 Allergies Allergy/AdvReac Type Severity Reaction Status Date / Time oxycodone Allergy Itching Verified 05/26/20 14:27 General Stated Complaint: Sorethroat REGGIE: 4 Review of Systems Constitutional Constitutional: Denies fatigue, Denies fever(s) and Denies headache(s) Eyes Eyes: Denies eye discharge ENT Ears, Nose, Mouth, and Throat: Denies otalgia, Denies facial pain, Denies headache(s), Denies neck pain, Reports sore throat and Denies throat swelling Cardiovascular Cardiovascular: Denies chest pain and Denies dyspnea Respiratory Respiratory: Denies cough and Denies dyspnea Gastrointestinal Gastrointestinal: Denies abdominal pain Musculoskeletal Musculoskeletal: Denies neck pain Integumentary/Breasts Skin/Breast: Denies rash Neurologic Neurologic: Denies headache(s) Endocrine Endocrine: Denies fatigue Allergic/Immunologic Allergic/Immunologic: Denies throat swelling PFSH Medical History Depression (Chronic) Surgical History Thyroid 03/16/10-Thyroidectomy. R mod rad neck dissection Wrist (~11/2013) Surgery and pins; [facility] Family History Mother No problems noted. Father Essential hypertension Hyperlipidemia Social History Smoking/Tobacco Use Status: Current every day Tobacco Type: cigarettes Alcohol Intake: current Alcohol Intake frequency: a few times a month Drug use: Daily Substance use type: marijuana Duration: > 90 minutes/day Frequency: 5-6 times per week Special raman needs: No Do you feel safe at home: Yes Do you feel safe in your relationship?: Yes Exam Const General: cooperative, healthy appearing, comfortable and no acute distress Orientation: alert and awake HENRI Head: normal to inspection, normocephalic and atraumatic Ears: external ears normal, TM's normal bilaterally and EAC's normal Face and sinus: normal facial exam Mouth: moist mucous membranes Throat: posterior oropharynx abnormal erythema (Mild) Eyes Conjunctivae: conjunctivae normal Sclera: sclerae normal Neck Neck: normal visual inspection, full ROM, no lymphadenopathy, no meningeal signs, trachea midline, supple and nontender Resp Effort & Inspection: normal respiratory effort and able to speak in complete sentences Auscultation: clear to auscultation bilaterally Cardio Rate: regular rate Rhythm: regular rhythm Skin General skin exam: no rashes or lesions noted Neuro General: patient alert, patient awake, patient oriented x3, moves all extremities and no focal motor deficits Cranial Nerves: CN's II-XI intact bilaterally Speech: speech normal Sensory Exam: no sensory deficits noted Psych Appearance: grossly normal Mental Status: mental status grossly normal Course Vital Signs Vital signs: Vital Signs Temperature 36.5 C 05/26/20 14:23 Pulse 98 H 05/26/20 14:23 Blood Pressure 158/104 H 05/26/20 14:23 Pulse Oximetry 97 05/26/20 14:23 Temperature 36.5 C 05/26/20 14:23 Temperature Source Temporal Artery Scan 05/26/20 14:23 Pulse 98 H 05/26/20 14:23 Respiratory Effort Non-Labored 05/26/20 14:26 Blood Pressure 158/104 H 05/26/20 14:23 Blood Pressure Position Sitting 05/26/20 14:23 Pulse Oximetry 97 05/26/20 14:23 Oxygen Delivery Method Room Air 05/26/20 14:23 Oxygen Flow Rate 0 05/26/20 14:23 Pain Level 4 05/26/20 14:23 Lab/Test Results Lab/Test Results: 05/26/20 14:30 Tonsil - Not Specified Streptococcus Screen (KENN) - Pending POC Strep Test-ROSARIO(Rapid) Start: 05/26/20 14:29 Freq: .Rapid Strep Test Status: Active Protocol: Document 05/26/20 14:36 TB (Rec: 05/26/20 14:36 TB [email or web address]) Strep test-ROSARIO(Rapid)-POC POC-Strep test-ROSARIO (Rapid) Negative POC-Strep test-ROSARIO (Rapid) Negative
== END 2020-05-26 15:07 | disposition home or self-care (01) ==
PROVIDERS: Emergency Provider Physician Assistant; PCP Nurse Practitioner
DX: J02.8 Acute pharyngitis due to other specified organisms (principal); F17.210 Nicotine dependence, cigarettes, uncomplicated
CPT/HCPCS: 87880; 99282; 87081

== ENCOUNTER 2021-02-05 09:16 | Outpatient (CLI) | payer MEDICARE, MEDICAID, SELFPAY ==
[2021-02-06 18:02] LABS: COVID-19 RT-PCR UVMMC Result Negative (Negative)
== END 2021-02-05 09:17 | disposition home or self-care (01) ==
PROVIDERS: PCP Nurse Practitioner; Visit Provider Nurse Practitioner
DX: Z20.822 Contact with and (suspected) exposure to COVID-19 (principal)
CPT/HCPCS: U0003

== ENCOUNTER 2022-05-23 09:12 | Emergency (ER) | payer MEDICARE, MEDICAID, SELFPAY ==
[2022-05-23 09:19] VITALS: BP 156/104; PULSE 67; RESP 18; TEMP 36.7; O2SAT 98
[2022-05-23 09:28] VITALS: RESP 18
--- NOTE | 2022-05-23 09:29 | ED.GENADUL_ITS ---
Discharge Plan Disposition Patient Disposition: HOME Condition: Stable Discharge Details Clinical Impression: Viral illness Primary Care Provider: Mandi Kim ED Provider: Charanjit Cline Home Meds and New Rx's Prescriptions: No Action levofloxacin 750 mg tablet 750 mg PO Q24H Qty: 7 0RF cholecalciferol (vitamin D3) 25 mcg (1,000 unit) tablet 25 mcg PO DAILY calcium carbonate-vitamin D3 [Calcium 600 with Vitamin D3] 600 mg(1,500mg) - 500 unit capsule PO DAILY levothyroxine 200 mcg tablet See Rx Instructions PO .COMPLEX Label Comments: Rx Instructions: 200mcg x5d and 100 mg 2xwk until runs out then switch to 175 mcg daily, note dated 06/28/21 cgc methylphenidate HCl [Ritalin] 10 mg tablet 10 mg PO DAILY MDD 2 methylphenidate HCl [Ritalin] 20 mg tablet 20 mg PO BID MDD 3 sildenafil 100 mg tablet 1 tab PO PRN PRN Label Comments: TAKE HALF TO ONE TABLET ONE HOUR BEFORE COITUS Discharge Instructions Instructions: COVID-19 (Coronavirus Disease 2019) (ED) Additional Instructions: At this time based on your symptoms I suspect COVID versus other viral illness. At this time both of them are treated the same with [id number] Tylenol or Motrin as needed for discomfort, lots of hydration, and plenty of rest. It is recommended that you quarantine until you receive your COVID results. If you are positive please follow state guidelines for quarantine. if you have any significant change or worsening of symptoms or emergent concerns please feel free to return to the emergency department for reassessment otherwise follow-up with your primary care provider if not improving in the next week. Stand Alone Forms: Work Release Referrals: Mandi Kim, RUT [Primary Care Provider] - Discharge Data Discharge Date/Time-TO BE ENTERED AT DEPARTURE: 05/23/22 09:37 Medical Decision Making Patient presenting to the emergency department for chief complaint of cold-like symptoms for the past couple days. Physical exam consistent with viral illness without sign of meningitis, severe systemic illness, hypoxia, hypotension, or worrisome findings. Discussed conservative management with patient and will perform send out COVID testing. Informed patient to quarantine until his results are below. I discussed return and follow precautions. After discussion of diagnosis and plan of care patient has no further needs, questions, or concerns and states clear understanding to return to the emergency department for any worsening symptoms. This documentation was generated using [email or web address] dictation system, please disregard any oddities of phrase or misspellings. HPI General Mode of arrival: ambulatory . Date/Time Provider Initiated Documentation: 05/23/22 09:28 . Limitations to Documentation: no limitations . Information obtained by: patient and RN notes reviewed . History of Present Illness 31 year old M presents to the emergency department with the chief complaint of Fever chills and headache, described as moderate, Related Data Home Medications Medication Instructions Recorded Confirmed methylphenidate HCl 10 mg tablet 10 mg PO DAILY 05/26/20 05/23/22 (Ritalin) methylphenidate HCl 20 mg tablet 20 mg PO BID 05/26/20 05/23/22 (Ritalin) calcium carbonate 600 mg-vitamin cap PO DAILY 07/07/20 05/25/21 D3 12.5 mcg (500 unit) capsule (Calcium 600 with Vitamin D3) cholecalciferol (vitamin D3) 25 25 mcg PO DAILY 07/07/20 05/23/22 mcg (1,000 unit) tablet levofloxacin 750 mg tablet 750 mg PO Q24H #7 tabs 05/25/21 05/23/22 levothyroxine 200 mcg tablet See Rx Instructions PO .COMPLEX 06/30/21 sildenafil 100 mg tablet 1 tab PO PRN PRN 05/23/22 05/23/22 Previous Rx's Medication Instructions Recorded levofloxacin 750 mg tablet 750 mg PO Q24H #7 tabs 05/25/21 Allergies Allergy/AdvReac Type Severity Reaction Status Date / Time oxycodone Allergy Itching Verified 05/23/22 09:22 General Stated Complaint: GenMedical REGGIE: 4 Review of Systems Constitutional Constitutional: Reports chills, Reports fever(s), Reports headache(s) and Reports malaise ENT Ears, Nose, Mouth, and Throat: Reports headache(s), Denies nasal congestion, Denies neck pain, Denies sinus pain and Denies sore throat Cardiovascular Cardiovascular: Denies chest pain, Denies syncope and Denies dyspnea Respiratory Respiratory: Denies cough and Denies dyspnea Gastrointestinal Gastrointestinal: Denies abdominal pain, Denies diarrhea, Denies nausea and Denies vomiting Musculoskeletal Musculoskeletal: Denies back pain, Reports myalgias and Denies neck pain Integumentary/Breasts Skin/Breast: Denies rash Neurologic Neurologic: Denies syncope and Reports headache(s) [facility] All Active Problems (Updated 05/23/22 @ 09:32 by Charanjit Cline NP) Viral illness (Acute) Acquired hypothyroidism (Chronic) TSH goal around 0.01-.05 and <2.0 as TG has been negative Hypocalcemia (Acute) Sore throat (Acute) Depression (Chronic) Vitamin D deficiency (Acute ~02/2019) Opioid dependence on agonist therapy (Chronic) Cannabis abuse, daily use (Chronic) Tobacco abuse (Chronic) Rosacea (Acute) Papillary thyroid carcinoma (Chronic 2009) stage I [id number] 02/2010 GERD (gastroesophageal reflux disease) (Acute) Essential hypertension (Acute) SECONDARY TO HYPERTHYROID-02/17/14 Attention deficit hyperactivity disorder (ADHD) (Acute) Anxiety (Acute) Medical History (Updated 05/23/22 @ 09:32 by Charanjit Cline NP) Fracture of right wrist with malunion Surgical History Thyroid 03/16/10-Thyroidectomy. R mod rad neck dissection Wrist (~11/2013) Surgery and pins; [facility] Family History (Updated 06/30/21 @ 13:20 by Gabriela Mosqueda RN) Father Essential hypertension Hyperlipidemia Paternal Grandfather Thyroid disease Maternal Grandmother Thyroid disease Social History Smoking/Tobacco Use Status: Current every day Tobacco Type: cigarettes Smoking risk assessment performed?: Yes Alcohol Intake: current Alcohol Intake frequency: a few times a month Drug use: Daily Substance use type: marijuana Duration: > 90 minutes/day Frequency: 5-6 times per week Special raman needs: No Do you feel safe at home: Yes Do you feel safe in your relationship?: Yes Exam Const General: cooperative, comfortable and no acute distress Orientation: alert and awake [facility] Head: normal to inspection, normocephalic and atraumatic Ears: hearing grossly normal bilaterally and TM's normal bilaterally General nose exam: external nose normal Face and sinus: no erythema Mouth: oral mucosae normal, no drooling, no muffled voice and no trismus Throat: posterior oropharynx normal Neck Neck: normal visual inspection, full ROM, no meningeal signs, trachea midline and supple Resp Effort & Inspection: normal respiratory effort and able to speak in complete sentences Auscultation: clear to auscultation bilaterally Cardio Rate: regular rate Rhythm: regular rhythm Heart Sounds: S1 normal, S2 normal, normal S1 and S2, no click, no gallops, no murmurs and no rubs Skin General skin exam: no rashes or lesions noted and dry skin (warm) Neuro General: patient alert, patient awake, patient oriented x3, gait normal and moves all extremities Cognition: normal cognition Speech: speech normal Course Vital Signs Vital signs: Vital Signs Temperature 36.7 C 05/23/22 09:19 Pulse 67 05/23/22 09:19 Respiratory Rate 18 05/23/22 09:19 Blood Pressure 156/104 H 05/23/22 09:19 Pulse Oximetry 98 05/23/22 09:19 Temperature 36.7 C 05/23/22 09:19 Temperature Source Temporal Artery Scan 05/23/22 09:19 Pulse 67 05/23/22 09:19 Respiratory Rate 18 05/23/22 09:19 Blood Pressure 156/104 H 05/23/22 09:19 Blood Pressure Position Sitting 05/23/22 09:19 Pulse Oximetry 98 05/23/22 09:19 Oxygen Delivery Method Room Air 05/23/22 09:19 Oxygen Flow Rate 0 05/23/22 09:19
[2022-05-24 15:28] LABS: COVID-19 RT-PCR UVMMC Result Positive (Negative)
--- NOTE | 2022-05-24 17:47 | W.ED.FU ---
Date of service: 05/24/22 Time of Service: 17:45 Follow Up Plan: Lab called to report a positive COVID test from ED visit on 05/23/2022. Called patient on number provided at [phone] and message left to return call to the ED to inform him of results. Also called on other number listed and patient's mom answered and advised that patient call the ED for results. Mom states she was aware that patient had a positive home COVID test this week.
== END 2022-05-23 09:37 | disposition home or self-care (01) ==
PROVIDERS: Emergency Provider Nurse Practitioner Family; PCP Nurse Practitioner
DX: U07.1 COVID-19 (principal)
CPT/HCPCS: 99282; U0003; U0005

== ENCOUNTER → 2023-01-17 12:46 | Outpatient (BNVA) | payer MEDICARE, MEDICAID, SELFPAY | PROVIDERS: PCP Nurse Practitioner; Referring Provider Nurse Practitioner; Visit Provider Nurse Practitioner Gerontology | DX: N52.9 Male erectile dysfunction, unspecified (principal) | CPT/HCPCS: 99214 ==

== ENCOUNTER 2023-04-25 20:12 | Emergency (ER) | payer MEDICARE, MEDICAID, SELFPAY ==
[2023-04-25 20:14] VITALS: BP 158/92; PULSE 80; RESP 17; TEMP 37.1; O2SAT 100
--- NOTE | 2023-04-25 20:15 | DI.RAD_ITS ---
Exam(s) XR KNEE LT 3V AP,LAT,LUCERO EXAM: XR KNEE LT 3V AP,LAT,LUCERO CLINICAL HISTORY: medial and posterior pain w/ pop while running. TECHNIQUE: 2D digital imaging was performed. Three views. COMPARISON: No exams were available for comparison FINDINGS: BONES: No acute fracture is present. No bony destructive lesion is seen. JOINTS: The knee is normally aligned. There is a large joint effusion. No significant degenerative c hanges. SOFT TISSUE: No foreign body. No abnormal gas collection. IMPRESSION: Large joint effusion. No bony abnormality. DATA REPOSITORY: RADIATION DOSE DELIVERED:
--- NOTE | 2023-04-25 21:11 | DI.VRAD_ITS ---
PROCEDURE INFORMATION: Exam: XR Left Knee Exam date and time: 04/25/2023 8:44 PM Age: 32 years old Clinical indication: Knee; Left; Patient HX: Medial and posterior pain w/ pop while running TECHNIQUE: Imaging protocol: Radiologic exam of the left knee. Views: 3 views. COMPARISON: No relevant prior studies available. FINDINGS: Bones/joints: There is a suprapatellar joint effusion present. Bone mineralization is age-appropriate. There is no evidence of fracture. No evidence of dislocation. The joint spaces are adequately preserved; no significant degenerative narrowing and no bony erosion seen. Soft tissues: No radiopaque foreign body present. There is soft tissue swelling present. IMPRESSION: 1. No acute osseous abnormality. 2. There is a suprapatellar joint effusion present. 3. There is soft tissue swelling present. Dictated and Authenticated by: Darrel Shelby MD. Ordering:ISACC Loo MD
--- NOTE | 2023-04-25 22:45 | W.ED.GENAD ---
Discharge Plan Disposition Patient Disposition: Home Condition: Good Discharge Details Clinical Impression: Left knee sprain Primary Care Provider: Mandi Kim ED Provider: Eze Gutierrez Home Meds and New Rx's Prescriptions: No Action methylphenidate HCl 20 mg tablet 20 mg PO TID MDD 60mg Qty: 84 0RF methylphenidate HCl 20 mg tablet 20 mg PO TID MDD 60mg Qty: 84 0RF methylphenidate HCl 20 mg tablet 20 mg PO TID MDD 60mg Qty: 84 0RF cholecalciferol (vitamin D3) 25 mcg (1,000 unit) tablet 25 mcg PO DAILY calcium carbonate-vitamin D3 [Calcium 600 with Vitamin D3] 600 mg(1,500mg) -500 unit capsule 1 cap PO DAILY levothyroxine 200 mcg tablet See Rx Instructions PO .COMPLEX Patient Comments: Rx Instructions: 200mcg x5d and 100 mg 2xwk until runs out then switch to 175 mcg daily, note dated 06/28/21 [facility] levothyroxine [Synthroid] 175 mcg tablet See Rx Instructions .ROUTE .COMPLEX Patient Comments: TAKE ONE TABLET BY MOUTH EVERY DAY Rx Instructions: see pcp instructions on rx sildenafil 100 mg tablet 1 tab PO PRN PRN Patient Comments: TAKE HALF TO ONE TABLET ONE HOUR BEFORE COITUS Discharge Instructions Instructions: Knee Sprain (ED) Additional Instructions: At this time your x-ray shows no evidence of fracture. I do suspect that you have sprained the knee. Please wear the knee brace and use crutches for the next week. Follow-up closely with the energy conservation specialist if your symptoms persist. Please take Tylenol and Motrin as needed for pain, ice the knee frequently and keep it elevated. If you notice any worsening of your symptoms, or any new symptoms such as vomiting, diarrhea, fever, chills, shortness of breath, chest pain, numbness, weakness, or fainting , please return immediately to the emergency department for reevaluation. Please follow up with your primary care provider as soon as possible for reassessment and reevaluation. As always, it was a pleasure participating in your medical care today. Stand Alone Forms: Work Release Referrals: Kayode Sierra MD [ [facility] STAFF PHYSICIAN] - Justino Alarcon MD [ [facility] STAFF PHYSICIAN] - Discharge Data Discharge Date/Time-TO BE ENTERED AT DEPARTURE: 04/25/23 22:57 Medical Decision Making 32-year-old male with no significant past medical history presents today for evaluation of left knee pain. Patient states that he was playing softball yesterday when he twisted his knee as he turned to throw a ball. He heard a pop at that time. He has been icing it, but he has still had persistent pain. He denies any numbness or tingling. He denies any other trauma. Swelling has been getting slightly worse with time. Pain is made worse with ambulation or activity. It is otherwise improved by nothing. He denies any previous injuries to the knee. He denies any other complaints. Physical exam demonstrates mild tenderness in the posterior popliteal space. Normal neurovascular exam distally. No significant joint laxity. Pain is made worse with valgus stressing. No significant instability though. No clinical evidence of vascular injury. Bedside limited ultrasound shows no evidence of large aneurysm rupture or large hematoma suggesting popliteal artery rupture. Suspect ligamentous injury. Will give hinged knee brace and crutches recommend continued ice and rest for the next week. Recommend outpatient follow-up with orthopedics if pain persist. Discussed red flags for which to return. I have extensively reviewed the treatment plan and discharge instructions with the patient. I have addressed all patient concerns at this time. The patient was made aware of what symptoms to monitor for that would warrant a return to the emergency department. Discussed the plan with the patient, they demonstrate verbal understanding and agreement with our assessment and plan at this time. The documentation in this chart was dictated using [employer] dictation software. Please excuse any dictation errors. FINDINGS: Bones/joints: There is a suprapatellar joint effusion present. Bone mineralization is age-appropriate. There is no evidence of fracture. No evidence of dislocation. The joint spaces are adequately preserved; no significant degenerative narrowing and no bony erosion seen. Soft tissues: No radiopaque foreign body present. There is soft tissue swelling present. IMPRESSION: 1. No acute osseous abnormality. 2. There is a suprapatellar joint effusion present. 3. There is soft tissue swelling present. Thank you for allowing us to participate in the care of your patient. Dictated and Authenticated by: Darrel Shelby MD 04/25/2023 9:11 PM Eastern Time ([place] & [place]) HPI General Date/Time Provider Initiated Documentation: 04/25/23 20:24. HPI Narrative: 32-year-old male with no significant past medical history presents today for evaluation of left knee pain. Patient states that he was playing softball yesterday when he twisted his knee as he turned to throw a ball. He heard a pop at that time. He has been icing it, but he has still had persistent pain. He denies any numbness or tingling. He denies any other trauma. Swelling has been getting slightly worse with time. Pain is made worse with ambulation or activity. It is otherwise improved by nothing. He denies any previous injuries to the knee. He denies any other complaints. Related Data Home Medications Medication Instructions Recorded Confirmed calcium carbonate 600 mg-vitamin 1 cap PO DAILY 07/07/20 04/25/23 D3 12.5 mcg (500 unit) capsule (Calcium 600 with Vitamin D3) cholecalciferol (vitamin D3) 25 25 mcg PO DAILY 07/07/20 04/25/23 mcg (1,000 unit) tablet levothyroxine 200 mcg tablet See Rx Instructions PO .COMPLEX 06/30/21 06/08/22 sildenafil 100 mg tablet 1 tab PO PRN PRN 05/23/22 06/08/22 methylphenidate HCl 20 mg tablet 20 mg PO TID #84 tabs 04/03/23 04/03/23 methylphenidate HCl 20 mg tablet 20 mg PO TID #84 tabs 04/03/23 04/03/23 methylphenidate HCl 20 mg tablet 20 mg PO TID #84 tabs 04/03/23 04/25/23 levothyroxine 175 mcg tablet See Rx Instructions .Route .COMPLEX 04/25/23 04/25/23 (Synthroid) Previous Rx's Medication Instructions Recorded methylphenidate HCl 20 mg tablet 20 mg PO TID #84 tabs 04/03/23 methylphenidate HCl 20 mg tablet 20 mg PO TID #84 tabs 04/03/23 methylphenidate HCl 20 mg tablet 20 mg PO TID #84 tabs 04/03/23 Allergies Allergy/AdvReac Type Severity Reaction Status Date / Time oxycodone Allergy Itching Verified 04/25/23 20:31 General Stated Complaint: Orthopedic REGGIE: 4 Review of Systems All systems reviewed & are unremarkable except as noted in HPI and below PFSH All Active Problems Left knee sprain (Acute) History of thyroid cancer (Acute) Acquired hypothyroidism (Chronic) TSH goal around 0.01-.05 and <2.0 as TG has been negative Hypocalcemia (Acute) Sore throat (Acute) Depression (Chronic) Vitamin D deficiency (Acute ~02/2019) Opioid dependence on agonist therapy (Chronic) Cannabis abuse, daily use (Chronic) Tobacco abuse (Chronic) Rosacea (Acute) Papillary thyroid carcinoma (Chronic 2009) stage I [id number] 02/2010 GERD (gastroesophageal reflux disease) (Acute) Essential hypertension (Acute) SECONDARY TO HYPERTHYROID-02/17/14 Attention deficit hyperactivity disorder (ADHD) (Acute) Anxiety (Acute) Medical History Fracture of right wrist with malunion Surgical History Thyroid 03/16/10-Thyroidectomy. R mod rad neck dissection Wrist (~11/2013) Surgery and pins; [facility] Family History Father Essential hypertension Hyperlipidemia Paternal Grandfather Thyroid disease Maternal Grandmother Thyroid disease Social History Smoking/Tobacco Use Status: Current every day Tobacco Type: cigarettes Smoking risk assessment performed?: Yes Alcohol Intake: current Alcohol Intake frequency: a few times a month Drug use: Daily Substance use type: marijuana Duration: > 90 minutes/day Frequency: 5-6 times per week Special raman needs: No Do you feel safe at home: Yes Do you feel safe in your relationship?: Yes Exam Narrative Exam Narrative: 1.Const: Well-nourished, Well-developed, appearing stated age 2.Eyes: PERRL, no conjunctival injection, and symmetrical lids. 3.ENT: Atraumatic external nose and ears. Moist MM. Neck: Symmetric, trachea midline, No thyromegaly. 4.CVS: +S1/S2, No murmurs or gallops. Peripheral pulses 2+ and equal in all extremities. Brisk capillary refill in all extremities. 5.RESP: Unlabored respiratory effort. Clear to auscultation bilaterally. No wheezes rales or rhonchi 6.GI: Soft, Nontender/Nondistended, No hepatosplenomegaly. No guarding or rebound. 7.MSK: Left knee: Tenderness over the medial aspect of the left knee. Tenderness in the posterior aspect as well. No pulsatile mass. The knee is stable to varus, valgus, and anterior drawer stress. No deformity. Patellar grind test is negative. Jose Raul test brings about mild pain. Patient walks with a mild limp.. No warmth to the joint. No ttp to the patella, tibial plateau, or fibular head. Mild pain on the medial aspect with valgus stressing. Extremity demonstrates no calf tenderness. Dorsalis pedis and posterior tibial pulse +2 bilaterally. Brisk capillary refill. Normal movement of the foot and ankle. 8.Skin: Warm, Dry. No rashes or lesions. 9.Neuro: rn cardiac rehab II-XII grossly intact. Sensation grossly intact, no focal neurologic deficits. 10.Psych: (AAO) x3. Appropriate mood and affect Course Vital Signs Vital signs: Vital Signs Temperature 37.1 C 04/25/23 20:14 Pulse 80 04/25/23 20:14 Respiratory Rate 17 04/25/23 20:14 Blood Pressure 158/92 H 04/25/23 20:14 Pulse Oximetry 100 04/25/23 20:14 Temperature 37.1 C 04/25/23 20:14 Temperature Source Oral 04/25/23 20:14 Pulse 80 04/25/23 20:14 Respiratory Rate 17 04/25/23 20:14 Respiratory Effort Normal 04/25/23 20:16 Blood Pressure 158/92 H 04/25/23 20:14 Blood Pressure Position Sitting 04/25/23 20:14 Pulse Oximetry 100 04/25/23 20:14 Oxygen Delivery Method Room Air 04/25/23 20:14 Oxygen Flow Rate 0 04/25/23 20:14 Pain Level 10 04/25/23 20:14 POCUS Exam (ED) Limited Vascular Exam DATE OF EXAM: 04/26/23 TIME OF EXAM: 02:32 PROVIDER THAT PERFORMED THE STUDY: Eze Gutierrez IS THIS A REPEAT EXAM DURING THIS ENCOUNTER: No Vascular Exam: Left lower extremity REASON FOR EXAM: Other (Concern for potential vascular injury) indication: Concern for potential vascular injury VISUALIZED STRUCTURES: Other (Popliteal artery was visualized, color flow was noted throughout. No large aneurysms or abnormalities) structure: Popliteal artery was visualized, color flow was noted throughout. No large aneurysms or abnormalities PERTINENT FINDINGS/IMPRESSION: No apparent abnormalities (Minimal generalized edema. No large hematoma.) Exam Complete
--- NOTE | 2023-04-25 22:56 | NUR.NOTE ---
Nursing Note: Patient provided with hinged knee brace and crutches at time of discharge.
== END 2023-04-25 22:57 | disposition home or self-care (01) ==
PROVIDERS: Emergency Provider Student in an Organized Health Care Education/Training Program; PCP Nurse Practitioner
DX: S83.92XA Sprain of unspecified site of left knee, initial encounter (principal); X50.9XXA Other and unspecified overexertion or strenuous movements or postures, initial encounter; Y93.69 Activity, other involving other sports and athletics played as a team or group
CPT/HCPCS: 73562; 93971; 99284; 99283

== ENCOUNTER → 2023-05-03 08:19 | Outpatient (BNVA) | payer MEDICARE, MEDICAID, SELFPAY | PROVIDERS: PCP Nurse Practitioner; Referring Provider Nurse Practitioner; Visit Provider Student in an Organized Health Care Education/Training Program | DX: S83.512A Sprain of anterior cruciate ligament of left knee, initial encounter (principal); X58.XXXA Exposure to other specified factors, initial encounter | CPT/HCPCS: 99203; 99213 ==

== ENCOUNTER 2023-05-09 18:22 | Outpatient (CLI) | payer MEDICARE, MEDICAID, SELFPAY ==
--- NOTE | 2023-05-09 09:30 | DI.MRI_ITS ---
Exam(s) MR LOWER JOINT LT WO EXAM: MR LOWER JOINT LT WO CLINICAL HISTORY: ? acl TEAR,lt knee sprain, s83.92xa TECHNIQUE: Multiplanar multisequence MRI of the knee was performed. COMPARISON: CR,XR XR KNEE LT 3V AP,LAT,LUCERO from 04/25/2023 FINDINGS: EFFUSION: There is a moderate-prominent size joint effusion. No Hayes cyst. MARROW:There is pivot shift bone contusion signal evident in the lateral tibial plateau and subarticu lar lateral femoral condyle. Sparing of the medial compartment as well as the fibular head and neck and no abnormal signal in the patella evident. There are no significant osseous lesions. PATELLOFEMORAL COMPARTMENT: The quadriceps tendon is intact. The patellar ligament is intact. There is no significant thinning of the retropatellar cartilage. No evidence of fissure nor signific ant chondral defect. No osteochondral defect at this level.There is no intraosseous signal to sugges t recent patellar dislocation. There are no patellar retinacular tears. CRUCIATE LIGAMENTS: The anterior cruciate ligament is torn.The posterior cruciate ligament is intact. MEDIAL COMPARTMENT/MEDIAL MENISCUS: There are no tears of the medial meniscus evident.The meniscal ro ot is intact.. There are no chondral defects, osteochondral defects, subarticular marrow edema, nor osteophytes evid ent. MEDIAL COLLATERAL LIGAMENT: Mild fluid between the deep and superficial layers but no high-grade tear of this structure. LATERAL COMPARTMENT/LATERAL MENISCUS: There is no evidence of lateral meniscal tear.There is subartic ular bone edema in the lateral femoral condyle over the main weight-bearing surface with out evidence of an osteochondral defect. Also bone edema evident in the lateral tibial plateau. ILIOTIBIAL BAND: Intact LATERAL COLLATERAL LIGAMENT COMPLEX: The fibular collateral ligament is intact. The biceps femoris t endon is intact.Popliteus muscle and tendon are intact. IMPRESSION: 1. There is a high-grade tear of the anterior cruciate ligament. The PCL is intact 2. There is bone contusion signal in the subarticular lateral femoral condyle and lateral tibial plat eau. 3. There are no meniscal tears. 4. Mild fluid signal in the thin bursa between the deep and superficial layers of the medial collater al ligament but no high-grade tear of this structure. The lateral collateral ligament complex compon ents are intact. 5. No significant findings in the patellofemoral compartment. 6. Moderate-sized joint effusion. No Hayes cyst DATA REPOSITORY:
== END 2023-05-09 18:42 ==
LOC: DI 18:34
PROVIDERS: PCP Nurse Practitioner; Visit Provider Student in an Organized Health Care Education/Training Program
DX: S83.512A Sprain of anterior cruciate ligament of left knee, initial encounter (principal); S80.02XA Contusion of left knee, initial encounter; X58.XXXA Exposure to other specified factors, initial encounter
CPT/HCPCS: 73721

== ENCOUNTER → 2023-05-24 08:49 | Outpatient (BNVA) | payer MEDICARE, MEDICAID, SELFPAY | PROVIDERS: PCP Nurse Practitioner; Referring Provider Nurse Practitioner; Visit Provider Student in an Organized Health Care Education/Training Program | DX: S83.512A Sprain of anterior cruciate ligament of left knee, initial encounter (principal); X58.XXXA Exposure to other specified factors, initial encounter | CPT/HCPCS: 99214 ==

== ENCOUNTER 2023-06-15 06:16 | Day surgery (SDC) | payer MEDICARE, MEDICAID, SELFPAY ==
[2023-06-15] VITALS (13 sets, daily range): BP systolic 124–165; BP diastolic 74–109; PULSE 62–91; RESP 9–17; TEMP 36.2–36.8; O2SAT 96–100; BMI 27.1
--- NOTE | 2023-06-15 07:05 | PDOC.DSDIS_ITS ---
Date of service: 06/15/23 Time of Service: 12:00 Discharge Plan Disposition Patient Disposition: Home Condition: Stable Discharge Details Attending Provider: Kayode Sierra Primary Care Provider: Mandi Kim Home Meds and New Rx's Prescriptions: New aspirin 81 mg tablet,delayed release (DR/EC) 81 mg PO DAILY 14 Days Qty: 14 0RF naproxen 250 mg tablet 250 - 500 mg PO BID PRN (Reason: Moderate pain) Qty: 40 0RF oxycodone 5 mg tablet 5 - 10 mg PO Q4H PRN (Reason: Moderate to severe pain) Qty: 18 0RF Continued cholecalciferol (vitamin D3) 25 mcg (1,000 unit) tablet 25 mcg PO DAILY calcium carbonate-vitamin D3 [Calcium 600 with Vitamin D3] 600 mg(1,500mg) - 500 unit capsule 1 cap PO DAILY methylphenidate HCl 20 mg tablet 20 mg PO TID MDD 60mg Qty: 84 0RF Rx Instructions: [facility], as last RX accidentally cancelled by a nurse levothyroxine [Synthroid] 175 mcg tablet See Rx Instructions .ROUTE .COMPLEX Patient Comments: TAKE ONE TABLET BY MOUTH EVERY DAY Rx Instructions: see pcp instructions on rx sildenafil 100 mg tablet 1 tab PO PRN PRN Patient Comments: TAKE HALF TO ONE TABLET ONE HOUR BEFORE COITUS Discharge Instructions Additional Instructions: Surgery: Left knee arthroscopy with quadriceps allograft with ACL reconstruction Activity: Weightbearing as tolerated. Advance range of motion as comfort al lows. Restore full knee extension as soon as possible. No knee brace or crutches needed as soon as stable and confident walking, usually about 2 weeks. Avoid any sporting activities for 9+ months. A physical therapy prescription will be sent electronically to resume in 2 to 3 weeks. Prescriptions: Aspirin 81 mg take 1 daily to prevent a blood clot for 14 days, starting tomorrow Naproxen 250 mg take 1-2 every 12 hours with a meal as needed for moderate pain Oxycodone 5 mg take 1-2 every 4-6 hours as needed for severe pain (may use [id number]-aafupep antihistamine as needed for itchiness) You may use [id number] Tylenol (acetaminophen) as needed for mild pain. These pain medications may be taken all at once or in different combinations as needed. Also, recommend Colace (docusate) as a stool softener as surgery and pain medicine cause constipation. You may try [id number] diphenhydramine (Benadryl) 25-50 mg nightly as a sleep aid Dressings: Leave dressing in place for 3 days. May then remove and leave open to air or cover incisions with Band-Aids. Leave the sticky Steri-Strips in place until they fall off or remove them after you shower. May shower after 5 days. Follow-up: 10-[address] Sierra You may take off the leg compression stockings this evening at home. You may also leave them on a few days longer if you have a history of leg swelling or edema. Let us know right away if you develop any redness, drainage, fevers, chest pain, or trouble breathing. Do not drink alcohol or drive for at least 24 hours after anesthesia. Please call the office during business hours with any questions or concerns. Discharge Orders Discharge Orders: Discharge Order (Routine); Ordered 06/15/23 Ordered By: Blu Ewing DS: Diagnosis Discharge Diagnosis (1) Left ACL tear: Status: Acute
[2023-06-15] MEDS: Lactated Ringers 1,000 ML 30 ML IV (07:06)
--- NOTE | 2023-06-15 07:09 | ANES.PREOP_ITS ---
General Info Date of Service Date Performed: 06/15/23 Height: 6 ft 2 in Weight: 95.8 kg Body Mass Index (BMI): 27.1 Surgical Procedure: Operation Date: 06/15/23 07:40 Proposed Procedure Side Surgeon p Knee ACL Reconstruction w/any indicated meniscal, chondral and synovial surgery Left Kayode Sierra MD Meds Allergies and Home Medications Allergies Allergy/AdvReac Type Severity Reaction Status Date / Time oxycodone Allergy Itching Verified 06/15/23 06:26 Home Medication Medication Instructions Recorded calcium carbonate 600 mg-vitamin 1 cap PO DAILY 07/07/20 D3 12.5 mcg (500 unit) capsule (Calcium 600 with Vitamin D3) cholecalciferol (vitamin D3) 25 25 mcg PO DAILY 07/07/20 mcg (1,000 unit) tablet sildenafil 100 mg tablet 1 tab PO PRN PRN 05/23/22 levothyroxine 175 mcg tablet See Rx Instructions .Route .COMPLEX 04/25/23 (Synthroid) methylphenidate HCl 20 mg tablet 20 mg PO TID #84 tabs 05/08/23 Current Visit Medications: Current Medications Generic Name Dose Route Start Last Admin Trade Name Freq PRN Reason Stop Dose Admin Ringer's Solution 1,000 mls @ 30 mls/hr 06/15/23 06:00 06/15/23 07:06 IV 07/14/23 23:59 30 mls/hr INFUSION GIOVANNY Administration Cefazolin Sodium/Dextrose 2 gm in 50 mls @ 100 mls/hr 06/15/23 06:00 Ancef Duplex IVPB 06/15/23 16:00 PREOP GIOVANNY IV Miscellaneous Supplies 1 each 06/15/23 06:00 Iv Access IV 07/14/23 23:59 DIRECTED GIOVANNY Oxycodone HCl 0 mg 06/15/23 07:03 Oxycodone 5 Mg Tab PO 07/15/23 07:02 Q3H PRN PRN Pain Sodium Chloride 0 ml 06/15/23 06:00 Normal Saline Flush 10 Ml Syr IV 07/14/23 23:59 PRN PRN Sodium Chloride 0 ml 06/15/23 06:00 Normal Saline 10 Ml Vial IJ 07/14/23 23:59 DIRECTED PRN Sterile Water 0 ml 06/15/23 06:00 Water,Injection,Sterile 10 Ml Vial IJ 07/14/23 23:59 DIRECTED PRN [facility] Active Problems Active Problems: Problem Status Onset Code Left ACL tear 04/24/23 S83.512A History of thyroid cancer Z85.850 Acquired hypothyroidism E03.9 Hypocalcemia E83.51 Sore throat J02.9 Depression F32.9 Vitamin D deficiency ~02/2019 E55.9 Opioid dependence on agonist therapy F11.20 Cannabis abuse, daily use F12.10 Tobacco abuse Z72.0 Rosacea L71.9 Papillary thyroid carcinoma 2010 C73 GERD (gastroesophageal reflux disease) K21.9 Essential hypertension I10 Attention deficit hyperactivity disorder (ADHD) F90.9 Anxiety F41.9 Medical History Medical History Fracture of right wrist with malunion Surgical History Surgical History Thyroid 03/16/10-Thyroidectomy. R mod rad neck dissection Wrist (~11/2013) Surgery and pins; [facility] Tobacco Smoking/Tobacco Use Status: Current every day Tobacco Type: cigarettes Alcohol Alcohol Intake: current Alcohol intake frequency: a few times a month Substance Use Substance use: Daily Substance use type: marijuana Vital Signs and Lab Results Vital Signs Most Recent Vital Signs in EMR: Most Recent Vital Signs Temp Pulse Resp BP Pulse Ox 36.6 C 66 16 136/96 H 97 06/15/23 06:29 06/15/23 06:29 06/15/23 06:29 06/15/23 06:29 06/15/23 06:29 Lab Results Blood Type / Crossmatch: No Data to Display Complete Blood Count: No Data to Display Complete Metabolic Panel: No Data to Display Liver Function Panel: No Data to Display Coagulation Panel: No Data to Display Cardiac Panel: No Data to Display Arterial Blood Gas: No Data to Display Venous Blood Gas: No Data to Display Pancreas Panel: No Data to Display Thyroid Panel: No Data to Display Infectious Disease: No Data to Display Blood Cultures: No Data to Display Toxicology Panel: No Data to Display Anesthesia Assessment and Plan Anesthesia History Personal History: No History of Anesthesia Complications Family History: No Family History of Anesthesia Complications Exercise Tolerance Exercise Tolerance: Metabolic Equivalents>4 Pertinent Negatives Pertinent Negatives: No Symptoms of GERD Cardiac & Pulmonary Exam Cardiac Exam: Normal S1/S2 Heart Sounds Pulmonary Exam: Clear Bilateral Breath Sounds Implantable Cardiac Device Does patient have a Pacemaker or an ICD?: No Airway Exam Known Difficult Airway: No Mallampati Class: 2 Mouth Opening: Normal (> 3cm) Thyromental Distance: Greater than 3 cm Neck Range of Motion: Full ROM Neck Circumference: Normal Teeth Condition: Normal Dentition ASA Classification ASA Score: ASA 2 Emergency Case?: No NPO Status NPO Status: NPO Clears >2 hours, Solids >8 hours Anesthesia Plan Resuscitation Status: Full Code Anesthesia Technique: General Anesthesia Airway Planned: Endotracheal Tube Monitors Used: Standard Monitors
--- NOTE | 2023-06-15 07:22 | ROE_ITS ---
Date of service: 06/15/23 Time of Service: 07:30 Operative Note Operative Note DATE OF PROCEDURE: 06/15/23 PRE-OP DIAGNOSIS: Left knee: 1. ACL rupture PROCEDURE: Left knee: 1. ACL reconstruction, CPT #56411: Quadriceps allograft SURGEON: Kayode Sierra INNER TUBE INSERTER: Blu Ewing ANESTHESIA TYPE: Local By Surgeon, General LMA/ETT and Primary Nerve Block Refer to Anesthesia Record ESTIMATED BLOOD LOSS: 5 TOURNIQUET TIME: 0 COMPLICATIONS: None Patient was transported to: PACU Patient's condition: stable Implants: Arthrex ACL TightRope II RT and ABS with 8x12 mm cortical button QuadLink pre-sutured quadriceps allograft: 10 x67 mm Indications: Please see complete medical record for details. Findings: Exam under anesthesia: Full range of motion, grossly positive Brandie, equivocal anterior drawer, and positive pivot-glide only. Stable varus and valgus stress. Arthroscopic findings: Intact medial and lateral menisci. Moderate suprapatellar and intercondylar synovitis. 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 High?grade proximal ACL disruption with a few remnant fibers still attached. Procedure Description: In the operating room, general anesthesia was induced. The patient was positioned supine on the operating room table. All bony prominences were well- padded. Preoperative antibiotics were administered. The knee was prepped and draped in the usual sterile fashion. The correct patient, procedure, and side of the procedure were all verified prior to incision. Exam under anesthesia was performed. Local anesthetic containing epinephrine was infiltrated about the planned anteromedial, anterolateral, lateral distal femoral, and pretibial surgery sites. The standard high and tight anterolateral and anteromedial portals were established and a complete diagnostic arthroscopy was performed with relevant findings detailed above. A passport cannula was inserted in both the anteromedial and anterolateral portals. The ACL remnant was thoroughly examined, there was poor quality and deficient proximal remnant tissue not amenable to repair. In the intercondylar area, the ACL remnant was removed leaving enough footprint on the femur and tibia to localize anatomic socket placement. A small notchplasty was performed to allow proper visualization of the back wall. The graft was measured and prepared on the back table. The TightRope II BTB and TightRope II ABS adjustable-loop cortical suspensory fixation implants were loaded on QuadLink pre-sutured quadriceps allograft. The femoral and tibial ends each measured with the femoral measuring 10 mm in the tibial measuring 9 mm. The graft was marked at 20 mm from each end. On the ABS side, the tensioning sutures were marked and a shuttle suture was added. The graft was manually tensioned and the construct did not demonstrate any elongation. The graft was then compressed in a graft tube and covered with vancomycin soaked sponges. The femoral guide was then placed through the anterolateral portal carefully targeting the appropriate anatomic ACL origin. The outer 9 mm diameter of the guide was positioned anatomically with appropriate space between the proximal and posterior articular margins. On the lateral thigh, drill guide position and angle adjusted to about 60 degree angle to the longitudinal axis of the femur in the coronal plane and 20 degree angle to the trans-epicondylar axis in the axial plane to create the most optimal femoral socket. Knife and snap were used to open the skin and IT band and placed the drill guide on bone while maintaining appropriate position on the lateral wall. The tunnel length was noted to be used for marking and passing the femoral button. The flip cutter was then drilled to the appropriate location. The drill guide malleted 7 mm into the cortex. The remainder of the targeting guide removed. The FlipCutter was deployed to 10 mm and retrograde reaming done to a depth of 35mm. Bony debris was removed with the shaver. The flip cutter was then closed, withdrawn, and a FiberStick used to pass a #2 FiberWire shuttle stitch, which was withdrawn out the anterolateral portal. The tibial guide was then used to target the anatomic ACL insertion through the anteromedial portal. The drill angle adjusted to 57.5 degrees and a pretibial incision made. The drill guide was placed on bone, tunnel length noted, and the flip cutter drilled to the appropriate location. The drill guide malleted 7 mm into the cortex. The remainder of the targeting guide removed. The FlipCutter was deployed to 9mm and retrograde reaming done to a depth of 30 mm. Bony debris was removed with the shaver. The flip cutter was then closed, withdrawn, and a FiberStick used to pass a #2 FiberWire shuttle stitch, which was withdrawn out the anteromedial portal. The mechanical shaver was used to remove bone debris as well as chamfer and remove soft tissue from the edges of the sockets. A femoral shuttle sutures were withdrawn out the anterior medial portal. The PassPort was removed. This portal dilated to accommodate the graft size. The graft was brought over to the knee and the femoral sutures shuttled out the l ateral thigh and advanced until the button was near the far cortex. Under arthroscopic visualization with the knee slightly hyperflexed, and the button was then passed and flipped on the far cortex. Counter traction was then maintained on the tibial side of the graft while it was carefully advanced into the knee and then about 15 mm into the femoral socket. The tibial sutures were then shuttled through the tibial tunnel and passing stitch removed while carefully noting the tensioning stitches. The graft was then dunked about 15 mm into the tibial socket. 8x12 mm ABS button was then loaded to the ABS loop and tension sutures used to bring the cortical button down to bone. The graft was advanced relatively evenly into both sockets and then provisionally tensioned on both the femoral and tibial sides. The knee was then cycled 22 times, tensioning rechecked, and final tightening done with the knee in full extension with a moderate reverse Brandie maintained. The graft position and tension were appropriate. There was no impingement in full extension. Brandie exam was stable. Femoral passing sutures were removed. Backup knots were then tied on both sides and suture tails cut. The knee and all portals were copiously irrigated and then knee drained of arthroscopic fluid. 3-0 Monocryl was used to close the portals and small incisions in a buried interrupted fashion. Mastisol, Steri-Strips, Xeroform, 4 x 4 gauze, and sterile soft roll was applied. The extremity was wrapped gently with an Garcia bandage. A soft knee immobilizer placed. The patient awoke from anesthesia without complication and was transferred to the recovery room in a stable condition.
[2023-06-15] MEDS: ceFAZolin 2 GM/50 ML BAG IVPB (07:48)
--- NOTE | 2023-06-15 08:28 | W.ANESNERVE ---
Nerve Block Single Injection Procedure Date and Time Date Performed: 06/15/23 Procedure Start: 07:25 Location Where Procedure Performed Procedure Location: Day Surgery Unit Reason Performed: Postoperative Analgesia Requesting Provider: Kayode Sierra Timeout Performed Timeout Performed: Yes Monitoring Used ECG, Blood Pressure, SpO2 and See EMR for corresponding vital signs Sterility Sterility: Hand Hygiene, Surgical Cap, Surgical Mask, Sterile Gloves, Eye Protection and Chlorhexidine Sedation Given During Procedure Sedation Given (Indicate Dose Given): Versed IV Dose:: 4mg Patient Mental Status Patient Mental Status: Sedate with meaningful communication Nerve Block 1st Nerve Block: Laterality: Left Block Type: Adductor Canal Ultrasound Image Saved?: Yes Needle / Catheter Used: 100mm SonoPlex II Local Anesthetic Bolus (Indicate Dose Given): Lidocaine used for local infiltration of skin, Injected in 3-5ml increments after negative blood aspiration and Ropivacaine 0.5% Dose:: Ropivacaine 100mg/20cc Additives (Indicate Dose Given): Epinephrine to make 1:200,000 (5mcg/ml) Dose:: Epi 100mcg and Decadron Dose:: 4mg Ultrasound: Sterile probe cover and gel used Nerve Stimulator: Not Used Paresthesia: None Procedure Tolerated: No Complications Procedure Outcome: Successful Performed By: Isak Thompson 2nd Nerve Block: Laterality: Left Block Type: Other (JOSE Left Vastus muscles) Ultrasound Image Saved?: Yes Needle / Catheter Used: 100mm SonoPlex II Local Anesthetic Bolus (Indicate Dose Given): Lidocaine used for local infiltration of skin (3CC/2%) and Ropivacaine 0.5% Dose:: 100mg/20cc Additives (Indicate Dose Given): Epinephrine to make 1:200,000 (5mcg/ml) Dose:: Epi 100mcg Ultrasound: Sterile probe cover and gel used Nerve Stimulator: Not Used Paresthesia: None Procedure Tolerated: No Complications Procedure Outcome: Successful Performed By: Isak Thompson
[2023-06-15] MEDS: EPINEPHrine 30 MG/30 ML VIAL (10:08)
[2023-06-15] MEDS: fentaNYL 100 MCG/2 ML VIAL IVP ×2 (11:43→11:51)
--- NOTE | 2023-06-15 12:07 | W.ANESPOSTOP ---
Postoperative Evaluation Date, Time and Location Date Performed: 06/15/23 Time Performed: 12:08 Patient Location: PACU Vital Signs Most Recent Imported Vital Signs: Most Recent Vital Signs Temp Pulse Resp BP Pulse Ox 36.2 C L 66 10 L 165/109 H 98 06/15/23 12:00 06/15/23 12:00 06/15/23 12:00 06/15/23 12:00 06/15/23 12:00 Pain Score Most Recent Pain Score: Most Recent Pain Score Pain Level 3 06/15/23 12:00 Assessment Mental Status: Awake (Alert & Oriented to Patient Baseline) Airway and Respiratory Function: Patent airway with normal (patient baseline) respiratory exam Cardiovascular Function: Hemodynamically Stable Hydration Status: Adequately Hydrated Nausea & Vomiting: No Nausea or Vomiting Pain: Pain is tolerable per patient (Treated with Rx) Peripheral Nerve Block: Regional nerve block not resolved at time of post operative discharge Postoperative Comments:: Pt given glottic image and recommendation given for ENT referral through PCP. Henrique Thompson CRNA
[2023-06-15] MEDS: oxyCODONE 5 MG TAB PO (12:32)
== END 2023-06-15 14:00 | disposition home or self-care (01) ==
PROVIDERS: PCP Nurse Practitioner; Visit Provider Student in an Organized Health Care Education/Training Program
PROC: (CPT 29888; principal; 2023-06-15 07:30)
DX: S83.512A Sprain of anterior cruciate ligament of left knee, initial encounter (principal); E89.0 Postprocedural hypothyroidism; Z85.850 Personal history of malignant neoplasm of thyroid; F17.210 Nicotine dependence, cigarettes, uncomplicated; F12.10 Cannabis abuse, uncomplicated; F11.20 Opioid dependence, uncomplicated; F32.A Depression, unspecified; X58.XXXA Exposure to other specified factors, initial encounter
CPT/HCPCS: 29888; C1776; 76942; J0171; J0690; J1100; J1885; J2001; J2250; J2405; J2704; J3010

== ENCOUNTER 2023-06-26 15:14 | Outpatient (CLI) | payer MEDICARE, MEDICAID, SELFPAY ==
--- NOTE | 2023-06-26 15:00 | RT.EKG_ITS ---
APPROVED REPORT Exam: Resting ECG Reason for Exam: takes methylphenidate Patient Location: O HR:88 bpm ECG Measurements Heart Rate 88 AXIS VA 151 P 66 QRSd 92 QRS 14 QT 351 T -23 QTc 425 Conclusion Sinus rhythm...normal P axis, V-rate 50- 99 Probable left atrial enlargement...P >50mS, <-0.10mV V1 Borderline T abnormalities, inferior leads...T flat/neg, II III aVF Baseline wander in lead(s) V1,V3,V4,V5
== END 2023-06-26 15:15 | disposition home or self-care (01) ==
LOC: DI.KIM 15:16
PROVIDERS: PCP Nurse Practitioner; Visit Provider Nurse Practitioner
DX: Z51.81 Encounter for therapeutic drug level monitoring (principal)
CPT/HCPCS: 93010

== ENCOUNTER → 2023-06-28 10:23 | Outpatient (BNVA) | payer MEDICARE, MEDICAID, SELFPAY | PROVIDERS: PCP Nurse Practitioner; Referring Provider Nurse Practitioner; Visit Provider Student in an Organized Health Care Education/Training Program | DX: M70.42 Prepatellar bursitis, left knee (principal); S83.512D Sprain of anterior cruciate ligament of left knee, subsequent encounter; X58.XXXD Exposure to other specified factors, subsequent encounter | CPT/HCPCS: 20610 ==

== ENCOUNTER → 2023-08-29 15:16 | Outpatient (BNVA) | payer MEDICARE, MEDICAID, SELFPAY | PROVIDERS: PCP Nurse Practitioner; Referring Provider Nurse Practitioner; Visit Provider Student in an Organized Health Care Education/Training Program | DX: S83.512D Sprain of anterior cruciate ligament of left knee, subsequent encounter (principal); X58.XXXD Exposure to other specified factors, subsequent encounter ==

== ENCOUNTER 2025-09-09 18:16 | Outpatient (REF) | payer BC, SELFPAY | END 2025-09-09 18:17 | disposition home or self-care (01) | LOC: LBN 18:16 | DX: Z51.81 Encounter for therapeutic drug level monitoring (principal) | CPT/HCPCS: 80360 ==